=== PATIENT | female | born 1995 | race Caucasian/White ===

== ENCOUNTER 2016-08-25 22:09 | Outpatient (CLI) | payer SELFPAY ==
[2016-08-25] MEDS ORDERED: LACTATED RINGERS 1,000 ML IV ONE (22:16)
[2016-08-25 22:23] VITALS: BP 109/71
[2016-08-25 23:24] LABS: Bilirubin,Urine NEG (Negative); Blood,Urine NEG (Negative); Ketones,Urine NEG (Negative); Leukocyte Esterase,Urine NEG (Negative); Mucus,Urine FEW /HPF; Nitrite,Urine NEG (Negative); Protein,Urine <15 mg/dL mg/dL (Negative); Urobilinogen,Urine < 2.0 mg/dL (<2.0)
== END 2016-08-25 23:35 | disposition home or self-care (01) ==
LOC: TRG 22:09
PROVIDERS: ATTEND Obstetrics & Gynecology
DX: O26.892 Other specified pregnancy related conditions, second trimester (principal); R10.9 Unspecified abdominal pain; Z3A.25 25 weeks gestation of pregnancy
CPT/HCPCS: 59025; 81001

== ENCOUNTER 2016-12-01 08:51 | Outpatient (CLI) | payer OTHER ==
[2016-12-01 09:49] VITALS: BP 112/74
== END 2016-12-01 10:00 | disposition home or self-care (01) ==
LOC: TRG 08:51
PROVIDERS: ATTEND Obstetrics & Gynecology
DX: O47.1 False labor at or after 37 completed weeks of gestation (principal); Z3A.39 39 weeks gestation of pregnancy
CPT/HCPCS: 59025

== ENCOUNTER 2016-12-01 19:13 | Outpatient (CLI) | payer SELFPAY ==
[2016-12-01] MEDS: AMBIEN PO PRN (20:30)
[2016-12-02 11:30] VITALS: BP 125/86
== END 2016-12-01 22:02 | disposition home or self-care (01) ==
LOC: TRG 19:13
PROVIDERS: ATTEND Obstetrics & Gynecology
DX: O47.1 False labor at or after 37 completed weeks of gestation (principal); Z3A.39 39 weeks gestation of pregnancy

== ENCOUNTER 2017-06-30 17:47 | Observation (INO) | payer SELFPAY ==
[2017-06-30 18:07] LABS: Hematocrit 30.8 % (30.3-42.9); Hemoglobin 10.1 gm/dl (10.1-14.3); Mean Corpuscular HGB Conc 33 % (30-34); Mean Corpuscular Volume 78 fl (79-97); Platelet Count 234 K/mm3 (140-440); Red Blood Count 3.93 M/mm3 (3.65-5.03); Red Cell Distribution Width 17.4 % (13.2-15.2)
[2017-06-30 18:20] LABS: Mean Corpuscular Hemoglobin 26 pg (28-32)
[2017-06-30 18:26] LABS: BUN/Creatinine Ratio 22; Blood Urea Nitrogen 11 mg/dL (7-17); Calcium 8.6 mg/dL (8.4-10.2); Hemolysis Index 0
[2017-06-30 18:29] LABS: Bilirubin,Urine NEG (Negative); Blood,Urine LG (Negative); Color,Urine Yellow (Yellow); Mucus,Urine FEW /HPF; Protein,Urine <15 mg/dL mg/dL (Negative); Urobilinogen,Urine < 2.0 mg/dL (<2.0)
[2017-06-30 18:30] LABS: RBC,Urine > 182.0 /HPF (0.0-6.0)
--- NOTE | 2017-06-30 20:38 | Ultrasound Report ---
FINAL REPORT PROCEDURE: US OB < = 14 WEEKS FETUS TECHNIQUE: Real-time transabdominal sonography of the uterus, placenta, amniotic fluid, adnexa, and fetus was performed with image documentation. Measurements were obtained to determine age/size. M-mode Doppler was used to document heartbeat. CPT 73275 HISTORY: + preg COMPARISON: No prior studies are available for comparison. FINDINGS: Uterus is anteverted and measures 21 x 12 x 16 centimeters. There is no evidence of any intrauterine gestational sac. Endometrial cavity appears to be filled with complex echogenic lesion with multiple septations measuring about 7 centimeters in the anteroposterior dimension. Bilateral ovaries are not visualized. Mild degree fluid is noted in the lower uterine segment and cervical canal. There is no free fluid in the pelvic cavity. IMPRESSION: Findings are most consistent with molar . There is no evidence of any normal appearing intrauterine gestational sac. Fluid is identified in the cervical canal and lower uterine segment most likely representing hemorrhage.
--- NOTE | 2017-06-30 20:43 | Ultrasound Report ---
FINAL REPORT PROCEDURE: US OB TRANSVAGINAL TECHNIQUE: Real-time transvaginal sonography of the uterus, placenta, amniotic fluid, adnexa, and fetus was performed with image documentation. Measurements were obtained to determine age/size. M-mode Doppler was used to document heartbeat. CPT 02970 HISTORY: VAG BLEEDING COMPARISON: No prior studies are available for comparison. FINDINGS: Uterus is anteverted and measures 21 x 12 x 16 centimeters. There is no evidence of any intrauterine gestational sac. Endometrial cavity appears to be filled with complex echogenic lesion with multiple septations measuring about 7 centimeters in the anteroposterior dimension. Bilateral ovaries are not visualized. Mild degree fluid is noted in the lower uterine segment. There is no free fluid in the pelvic cavity. Cervix is 1.7 centimeters and is closed. IMPRESSION: Findings are most consistent with molar . There is no evidence of any normal appearing intrauterine gestational sac. Fluid is identified in the lower uterine segment most likely representing hemorrhage.
--- NOTE | 2017-06-30 21:47 | Emergency Department Report ---
ED Female HPI - General Chief complaint: Vaginal Bleeding Stated complaint: VAGINAL BLEEDING Time Seen by Provider: 06/30/17 18:55 Source: patient Mode of arrival: Ambulatory Limitations: No Limitations - History of Present Illness Initial comments: 21-year-old female comes in complaining of onset of vaginal bleeding that started on 06/26/2017. Patient reports it was a normal onset and then she started to have large clots is started with pelvic pain today. Patient reports that she had one tests positive and one negative that was compared done on Thursday. Patient is 2 para 1 last delivered 2016. Patient reports that she has no nausea no vomiting no headache just intense pelvic pain and bleeding. Patient denies any past medical history currently takes no medications and has no known drug allergies. MD Complaint: vaginal bleeding -: days(s) (4) Location: suprapubic Radiation: non-radiating Severity: severe Severity scale (0 -10): 5 Quality: cramping, sharp Consistency: constant Improves with: none Worsens with: movement Are you Now?: Yes Last Menstrual Period: 01/23/17 EDC: 10/30/17 Associated Symptoms: denies other symptoms - Related Data Sexually active: Yes : 2 Para: 1 Previous Rx's Medication Instructions Recorded Last Taken Type Acetaminophen 325 mg PO Q6HR #30 tablet 07/01/17 Unknown Rx Misoprostol [Cytotec] 400 mcg PO Q4HR #6 tablet 07/01/17 Unknown Rx Multivitamin with Iron 1 each PO DAILY #30 tablet 07/01/17 Unknown Rx [Multivitamins with Iron] Allergies Allergy/AdvReac Type Severity Reaction Status Date / Time No Known Allergies Allergy Verified 12/01/16 08:58 ED Review of Systems ROS: Stated complaint: VAGINAL BLEEDING Other details as noted in HPI Constitutional: denies: chills, fever Eyes: denies: eye pain, eye discharge, vision change ENT: denies: ear pain, throat pain Respiratory: denies: cough, shortness of breath, wheezing Cardiovascular: denies: chest pain, palpitations Endocrine: no symptoms reported Gastrointestinal: abdominal pain Genitourinary: other. denies: dysuria Musculoskeletal: denies: back pain, joint swelling, arthralgia Skin: denies: rash, lesions Neurological: denies: headache, weakness, paresthesias Psychiatric: denies: anxiety, depression Hematological/Lymphatic: denies: easy bleeding, easy bruising ED Past Medical Hx - Past Medical History Hx Hypertension: No Hx Diabetes: No Hx Deep Vein Thrombosis: No Hx Renal Disease: No Hx Sickle Cell Disease: No Hx Seizures: No Hx Asthma: No Hx HIV: No - Social History Smoking Status: Never Smoker Substance Use Type: None - Medications Home Medications: Home Medications Medication Instructions Recorded Confirmed Last Taken Type Acetaminophen 325 mg PO Q6HR #30 tablet 07/01/17 Unknown Rx Misoprostol [Cytotec] 400 mcg PO Q4HR #6 tablet 07/01/17 Unknown Rx Multivitamin with Iron 1 each PO DAILY #30 tablet 07/01/17 Unknown Rx [Multivitamins with Iron] ED Physical Exam - General Limitations: No Limitations General appearance: alert, other - Head Head exam: Present: atraumatic, normocephalic - ENT ENT exam: Present: mucous membranes moist - Neck Neck exam: Present: normal inspection - Respiratory Respiratory exam: Present: normal lung sounds bilaterally. Absent: respiratory distress - Cardiovascular Cardiovascular Exam: Present: regular rate, normal rhythm. Absent: systolic murmur, diastolic murmur, rubs, gallop - GI/Abdominal GI/Abdominal exam: Present: soft, tenderness. Absent: distended, guarding, rebound - Extremities Exam Extremities exam: Present: normal inspection, full ROM - Back Exam Back exam: Present: normal inspection, full ROM - Neurological Exam Neurological exam: Present: alert, oriented X3 - Psychiatric Psychiatric exam: Present: normal affect, normal mood - Skin Skin exam: Present: warm, dry, intact, normal color. Absent: rash ED Course Vital Signs 06/30/17 07/01/17 17:50 00:47 Temperature 98.7 F 99.5 F Pulse Rate 87 99 H Respiratory 18 17 Rate Blood Pressure 122/77 Blood Pressure 111/74 [Right] O2 Sat by Pulse 99 98 Oximetry ED Medical Decision Making - Lab Data Result diagrams: 06/30/17 23:39 06/30/17 17:57 - Radiology Data Radiology results: report reviewed, image reviewed FINDINGS: Uterus is anteverted and measures 21 x 12 x 16 centimeters. There is no evidence of any intrauterine gestational sac. Endometrial cavity appears to be filled with complex echogenic lesion with multiple septations measuring about 7 centimeters in the anteroposterior dimension. Bilateral ovaries are not visualized. Mild degree fluid is noted in the lower uterine segment and cervical canal. There is no free fluid in the pelvic cavity. IMPRESSION: Findings are most consistent with molar . There is no evidence of any normal appearing intrauterine gestational sac. Fluid is identified in the cervical canal and lower uterine segment most likely representing hemorrhage. Transcribed By: [facility] [place] Dictated By: BELEN TRIPLETT Electronically Authenticated By: BELEN TRIPLETT Signed Date/Time: 06/30/172031 DD/ 31 TD/TT: 06/30/172031 - Medical Decision Making Patient's been evaluated with this provider fast track. Patient having severe pelvic pain and bleeding with clots. Place labs her hCG was 268,000, WBCs 16.8 urinalysis shows elevated WBCs of 12. Ordered an ultrasound which shows a molar of approximately 20 weeks. Patient had an IV with normal saline second liter ordered ordered a repeat CBC. Patient's been ordered nothing by mouth she's had morphine for pain she's been evaluated by Dr. Love. Dr. Yang is aware of this case. Critical care attestation.: If time is entered above; I have spent that time in minutes in the direct care of this critically ill patient, excluding procedure time. 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
[2017-06-30] MEDS ORDERED: MORPHINE IV ONE (22:31)
[2017-06-30] MEDS ORDERED: NACL 0.9% 1000 ML 1,000 ML IV ONE (22:31)
[2017-06-30 22:50] LABS: Basophils % (Manual) 0 % (0.0-1.8); Eosinophils % (Manual) 0 % (0.0-4.3); Total Cells Counted 100
[2017-06-30 22:51] LABS: Platelet Estimate Consistent w Auto
--- NOTE | 2017-06-30 23:39 | Anesthesia Consultation ---
Anesthesia Consult and Med Hx - Airway Anesthetic Teeth Evaluation: Good ROM Head & Neck: Adequate Mental/Hyoid Distance: Adequate Mallampati Class: Class II Intubation Access Assessment: Good - Pulmonary Exam CTA: Yes - Cardiac Exam Cardiac Exam: RRR - Pre-Operative Health Status ASA Pre-Surgery Classification: ASA1, Emergency Proposed Anesthetic Plan: General - Pulmonary Hx Asthma: No - Cardiovascular System Hx Hypertension: No - Central Nervous System Hx Seizures: No Hx Psychiatric Problems: No - Endocrine Hx Renal Disease: No Hx Hypothyroidism: No Hx Hyperthyroidism: No - Hematic Hx Sickle Cell Disease: No - Other Systems Hx Alcohol Use: No
[2017-06-30 23:58] LABS: Basophils % (Auto) 0.2 % (0.0-1.8); Eosinophils % (Auto) 0.2 % (0.0-4.3); Hematocrit 32.6 % (30.3-42.9); Hemoglobin 10.6 gm/dl (10.1-14.3); Lymphocytes # (Auto) 2.1 K/mm3 (1.2-5.4); Mean Corpuscular HGB Conc 33 % (30-34); Mean Corpuscular Volume 78 fl (79-97); Monocytes # (Auto) 0.8 K/mm3 (0.0-0.8); Monocytes % (Auto) 4.1 % (0.0-7.3); Platelet Count 233 K/mm3 (140-440); Red Blood Count 4.19 M/mm3 (3.65-5.03); Red Cell Distribution Width 17.2 % (13.2-15.2)
[2017-07-01 00:04] LABS: Mean Corpuscular Hemoglobin 25 pg (28-32)
--- NOTE | 2017-07-01 00:18 | Short Stay Summary ---
Short Stay Documentation Date of service: 07/01/17 Narrative H&P: C/O: Molar Asked to see this 21-year-old with molar . Essential history this patient with history of irregular cycles, her LMP was 02/08/2017. Because of her irregular cycles however she was unconcerned. Last week, she decided to perform a test due to increasing abdominal girth; result was positive. She comes into the ER today due to increasing uterine cramping and vaginal bleeding w/ clots. B HCG Quant was ~ 268,000 Pelvic sonogram shows uterus measuring ~ 21 x 16 cm, no evidence of IUP. Endometrial cavity appears filled with complex echogenic lesions with multiple septations measuring about 7 cm in AP dimension. No free fluid in the pelvic cavity. Findings most consistent with molar Gynhx:As above Medx/Sughx:None All:NKDA PE: Alert and oriented 3 Stable Mild vaginal bleeding at this time A: Molar P: -Patient will need D&C -In view of size of the uterus, will place prophylactic occlusion balloon catheters -Have consulted Interventional radiologist, Dr Rivas -Discussed in detail plan for management with the patient. Explained risks of progression to gestational trophoblastic disease. -Advised of need to follow her beta-hCGs weekly until negative 3 weeks and then monthly for 6 months -Expalined need to use a good method of control during this period -She has been consented for the D&C - History Past Medical History: No medical history Past Surgical History: No surgical history Social history: no significant social history, single, no smoking, no alcohol abuse, no IV drug use - Allergies and Medications Current Medications: Allergies No Known Allergies Allergy (Verified 12/01/16 08:58) Home Medications Medication Instructions Recorded Confirmed Last Taken Type No Known Home Medications [No 12/01/16 12/01/16 Unknown History Reported Home Medications] - Physical exam General appearance: no acute distress, obese HEENT: Atraumatic Lungs: Clear to auscultation, Normal air movement Breasts: deferred Heart: Regular rate, Normal S1, Normal S2 Gastrointestinal: normal, no tenderness Extremities: no ischemia - Brief post op/procedure progress note Date of procedure: 07/01/17 Pre-op diagnosis: molar Post-op diagnosis: same Procedure: Suction D&C Anesthesia: GETA Findings: Parous os, thick fleshy appearing endometrial tissue Surgeon: OBIAJULU RYLEE Estimated blood loss: 50-100ml Pathology: list (suction curette specimen) Specimen disposition: to lab Condition: stable - Hospital course Hospital course: Patient will be transferred to PACU and observed. 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
[2017-07-01] MEDS ORDERED: MORPHINE IV PRN ×2 (00:19→03:14)
[2017-07-01] MEDS ORDERED: ZOFRAN IV PRN (00:19)
[2017-07-01] MEDS ORDERED: SODIUM CHLORIDE FLUSH SYRINGE 10 ML IV PRN (00:19)
[2017-07-01] MEDS ORDERED: MORPHINE ONE (00:43)
[2017-07-01] MEDS ORDERED: NACL 0.9% 1000 ML 1,000 ML IV SCH (01:00)
--- NOTE | 2017-07-01 06:52 | Progress Note ---
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 She apparently passed a large clot last night, she did not save this but flushed it down the toilet. Her cramping has improved after passage of this blood clot Patient reports: appetite normal, voiding normally, pain well controlled, no dizzy ambulation, no nauseated Objective - Vital Signs Latest vital signs: Vital Signs Temp Pulse Resp BP BP Pulse Ox 07/01/17 04:40 98.6 F 86 20 126/73 07/01/17 04:15 22 07/01/17 02:00 98.2 F 107 H 20 123/67 07/01/17 00:47 99.5 F 99 H 17 111/74 98 06/30/17 17:50 98.7 F 87 18 122/77 99 Intake and Output 06/30/17 06/30/17 07/01/17 15:59 23:59 07:59 Output Total 400 Balance -400 Output: Urine 400 Void 400 Other: Total, Output Amount 400 Voiding Method Toilet Weight 75.6 kg 75.9 kg Patient Weight 07/01/17 23:59 Weight 75.9 kg - Exam Abdomen: Present: normal appearance, soft. Absent: distention, tenderness, guarding, rigidity Uterus: Absent: tenderness Extremities: Present: normal - Labs Labs: Abnormal lab results 06/30/17 06/30/17 06/30/17 Range/Units 17:57 17:57 17:57 WBC 16.8 H (4.5-11.0) K/mm3 MCV 78 L (79-97) fl MCH 26 L (28-32) pg RDW 17.4 H (13.2-15.2) % Lymph % (Auto) (13.4-35.0) % Seg Neutrophils % (40.0-70.0) % Seg Neuts % (Manual) 82.0 H (40.0-70.0) % Seg Neutrophils # (1.8-7.7) K/mm3 Seg Neutrophils # Man 13.8 H (1.8-7.7) K/mm3 Sodium 135 L (137-145) mmol/L Carbon Dioxide 20 L (22-30) mmol/L Creatinine 0.5 L (0.7-1.2) mg/dL HCG, Quant [id number] H (0-4) mIU/mL Urine WBC (Auto) (0.0-6.0) /HPF 06/30/17 06/30/17 Range/Units 18:07 23:39 WBC 19.4 H (4.5-11.0) K/mm3 MCV 78 L (79-97) fl MCH 25 L (28-32) pg RDW 17.2 H (13.2-15.2) % Lymph % (Auto) 11.0 L (13.4-35.0) % Seg Neutrophils % 84.5 H (40.0-70.0) % Seg Neuts % (Manual) (40.0-70.0) % Seg Neutrophils # 16.4 H (1.8-7.7) K/mm3 Seg Neutrophils # Man (1.8-7.7) K/mm3 Sodium (137-145) mmol/L Carbon Dioxide (22-30) mmol/L Creatinine (0.7-1.2) mg/dL HCG, Quant (0-4) mIU/mL Urine WBC (Auto) 12.0 H (0.0-6.0) /HPF
--- NOTE | 2017-07-01 07:36 | Ultrasound Report ---
Pelvic sonography: Compared to 06/30/17. History: Vaginal bleeding. Molar . Findings: Uterus measures 15.1 x 6.9 x 10.3 cm. Thickening of the endometrium is noted and measures 34.5 mm. Endometrium appears heterogeneous with hypoechoic hyperechoic areas suggestive of retained tissue. Less compared to previous study. Right ovary 3.9 x 1.8 x 2.5 cm. Left ovary 3.5 x 1.9-2.5 cm. No fluid in the cul-de-sac. Impression: Retained tissue suggestive of molar . Less compared to previous study. No transvaginal sonography performed.
[2017-07-01] MEDS ORDERED: DOXYCYCLINE HYCLATE 100 MG in NACL 0.9% 250ML 250 ML IV ONE (09:00)
[2017-07-01] MEDS ORDERED: CYTOTEC PR NR (09:00)
[2017-07-01] MEDS ORDERED: SILVER NITRATE TP ONE ×2 (09:54→10:58)
[2017-07-01] MEDS ORDERED: METHERGINE IM ONE (09:54)
[2017-07-01] MEDS ORDERED: SODIUM CHLORIDE FLUSH SYRINGE 10 ML IV SCH (10:00)
[2017-07-01] MEDS ORDERED: DIPRIVAN 10 MG/ML IV ONE (10:05)
[2017-07-01] MEDS ORDERED: DILAUDID ONE (10:20)
[2017-07-01] MEDS ORDERED: XYLOCAINE MPF 2% ONE (10:20)
[2017-07-01] MEDS ORDERED: DECADRON ONE (10:25)
[2017-07-01] MEDS ORDERED: ZOFRAN ONE (10:25)
[2017-07-01] MEDS ORDERED: NACL 0.9% IR ONE (10:51)
[2017-07-01] MEDS ORDERED: CYTOTEC VG ONE (10:59)
--- NOTE | 2017-07-01 11:08 | Operative Report ---
Operative Report Operative Report: Date of surgery: 07/01/2017 Preoperative diagnosis: Molar Postoperative diagnosis: Same as above Procedure: Suction dilatation and curettage Surgeon: Gian Love M.D. Anesthesia: Gen. endotracheal anesthesia Estimated blood loss: 100 mL Findings: Parous OS, significant amount of fleshy tissue Brief Note: Patient was started on Pitocin prior to procedure Procedure: The patient was taken to the operating room and given general endotracheal anesthesia without complication. The patient is prepped and draped in a normal sterile fashion. A bivalve speculum was placed in the patient's vagina and a single-tooth tenaculums placed on the anterior lip of the cervix. The uterine cavity was not sounded. The cervical os did not need to be dilated. A number 14 size cannula was placed to suction and found to be adequate. The cannula was then gently inserted into the dilated cervical os. Evacuation of the uterine contents were performed. Sharp curettage and endometrial surface was performed until cry was achieved. The cannula was then gently reinserted into the uterine cavity to evacuate any additional contents. After removal of the cannula there was no evidence of any active bleeding. The vaginal instruments were then removed atraumatically. The patient was then successfully extubated and taken to the recovery room in stable condition. All sponge laps and needle counts were correct 2. Pathology consisted of products of conception.
[2017-07-01] MEDS ORDERED: NORCO 5/325 PO PRN (11:19)
[2017-07-01] MEDS ORDERED: TYLENOL PO PRN (11:19)
[2017-07-01 12:10] VITALS: BP 112/77
== END 2017-07-01 12:25 | disposition home or self-care (01) ==
LOC: ED 17:47 → OB 07-01 00:19
PROVIDERS: ADMIT Obstetrics & Gynecology Gynecology; ATTEND Obstetrics & Gynecology Gynecology
DX: O01.9 Hydatidiform mole, unspecified (principal)
CPT/HCPCS: 36415; 59870; 76801; 76817; 76856; 80048; 81001; 84702; 85007; 85025; 85027; 86850; 86900; 86901; 88305; 96374; 96375; 96376; G0378; J1100; J1170; J2270; J2405; J2590; J2704; J7030; J7050; J2210